=== PATIENT | male | born 1970 | race Two or more races ===

== ENCOUNTER 2020-07-13 11:19 | Emergency (ER) | payer OTHER ==
[~2020-07-13] VITALS: Ht 177.8 cm; Wt 77.1 kg
[2020-07-13] MEDS ORDERED: ELIQUIS2.5 MG (11:28)
== END 2020-07-13 14:16 | disposition home or self-care (01) ==
LOC: ER 11:19
DX: R42 Dizziness and giddiness (principal); Z03.818 Encounter for observation for suspected exposure to other biological agents ruled out